=== PATIENT | male | born 1980 | race Caucasian/White ===

== ENCOUNTER → 2018-10-10 | Outpatient (REF) ==
--- NOTE | 2018-10-10 22:19 | REP ---
Clinical: Cervical neck pain. Technique: AP, lateral, open mouth views of the cervical spine. Findings: Alignment and lordosis maintained. No acute fracture / compression injury or subluxation. No significant degenerative changes are appreciated. Impression: Age-appropriate cervical spine radiographs. Electronically Signed by Paolo Conley MD 10/10/2018 10:11 P
--- NOTE | 2018-10-10 22:23 | REP ---
Clinical: Right knee pain Technique: AP, lateral, bilateral oblique and sunrise views. Findings: Mild tricompartmental changes including subchondral sclerosis to the tibial plateau with joint space narrowing and subtle lateral spur. The patella and patellofemoral joint space includes posterior sclerosis with marginal/lateral osteophyte formation as well as mild fraying along the anterior patellar margin. Impression: Mild tricompartmental osteoarthritic degenerative changes. Electronically Signed by Paolo Conley MD 10/10/2018 10:15 P
== END ==
LOC: M SMT 13:00
PROVIDERS: ATTEND Internal Medicine
DX: Z00.00 Encounter for general adult medical examination without abnormal findings (principal)